=== PATIENT | female | born 1935 | race Caucasian/White ===

== ENCOUNTER 2023-01-24 00:16 | Emergency (ER) | payer MEDICARE, BC ==
[~2023-01-24] VITALS: Ht 167.6 cm; Wt 40.8 kg
[2023-01-24] MEDS ORDERED: TDAP [DIPH/PERTUSSIS/TET] 0.5 ML VIAL IM ONE ×2 (00:26→00:30)
[2023-01-24 05:37] VITALS: BP 98/53; TEMP 98.1; O2SAT 99
== END 2023-01-24 05:37 ==
LOC: ER 00:19
DX: S02.2XXA Fracture of nasal bones, initial encounter for closed fracture (principal); S00.511A Abrasion of lip, initial encounter; W01.0XXA Fall on same level from slipping, tripping and stumbling without subsequent striking against object, initial encounter; Y93.89 Activity, other specified; Y92.89 Other specified places as the place of occurrence of the external cause; Y99.8 Other external cause status
CPT/HCPCS: 70450-TC; 70486-TC; 90715